=== PATIENT | female | born 1980 | race Caucasian/White ===

== ENCOUNTER → 2017-07-20 | Outpatient (CLI) | payer OTHER | LOC: FIMAGING 10:17 | PROVIDERS: ATTEND Obstetrics & Gynecology | DX: N92.1 Excessive and frequent menstruation with irregular cycle (principal) ==

== ENCOUNTER 2018-02-08 12:21 | Emergency (ER) | payer OTHER ==
[2018-02-08 13:03] LABS: PLATELET COUNT 225 10^3/uL (150-400)
[2018-02-08 13:30] LABS: INR 1.04 (0.83-1.16); PROTIME(PATIENT) 13.8 SEC (12.0-15.0)
[2018-02-08] MEDS ORDERED: APIXABAN 5 MG TAB PO ONE (13:45)
--- NOTE | 2018-02-08 13:45 | EDPHY ---
H & P Stated Complaint: Sent from urgent care for blood clot in upper arm area (?) Time Seen by Provider: 02/08/18 12:28 HPI/ROS: CHIEF COMPLAINT: DVT right arm HISTORY OF PRESENT ILLNESS: The patient presents to the ED after she was diagnosed with a DVT in her right arm at urgent care. The patient denies any history of fall or trauma. She does not smoke or use estrogens. There is no family history of DVT or PE. The patient denies any chest pain or difficulty breathing. The patient has no complaints of fever, cough or congestion. She denies any acute numbness or weakness. REVIEW OF SYSTEMS: A comprehensive 10 point review of systems is otherwise negative aside from elements mentioned in the history of present illness. Source: Patient Exam Limitations: No limitations - Personal History LMP (Females 10-55): Unknown Current Tetanus/Diphtheria Vaccine: No Current Tetanus Diphtheria and Acellular Pertussis (TDAP): No - Medical/Surgical History Hx Asthma: No Hx Chronic Respiratory Disease: No Hx Diabetes: No Hx Cardiac Disease: No Hx Renal Disease: No Hx Cirrhosis: No Hx Alcoholism: No Hx HIV/AIDS: No Hx Splenectomy or Spleen Trauma: No Other PMH: denies - Social History Smoking Status: Never smoked - Physical Exam Exam: General Appearance: Alert, no distress Eyes: Pupils equal and round no pallor or injection ENT, Mouth: Mucous membranes moist Respiratory: There are no retractions, lungs are clear to auscultation Cardiovascular: Regular rate and rhythm Gastrointestinal: Abdomen is soft and nontender, no masses, bowel sounds normal Neurological: A&O, normal motor function, normal sensory exam, normal cranial nerves Skin: Warm and dry, no rashes Musculoskeletal: Neck is supple nontender Extremities: Mild asymmetry noted in the right forearm, brisk 2+ radial and ulnar pulse noted, no compartment all tenderness Constitutional: Initial Vital Signs Temperature (C) 37.0 C 02/08/18 12:24 Heart Rate 55 L 02/08/18 12:24 Respiratory Rate 16 02/08/18 12:24 Blood Pressure 127/95 H 02/08/18 12:24 O2 Sat (%) 97 02/08/18 12:24 O2 Delivery Mode Room Air Allergies/Adverse Reactions: latex Allergy (Verified 02/08/18 12:23) Home Medications: Medication Instructions Recorded Apixaban [Eliquis] 5 tab PO AD #74 tab 02/08/18 Medical Decision Making - Diagnostics Imaging Results: Venous Duplex Doppler Study of Right Upper Extremity , 11:06 AM History: Acute swelling, M79.89 Technique: High frequency transducer was used for imaging and Doppler study of the veins of the right upper extremity. Spectral Doppler and color Doppler were utilized, along with various maneuvers to assess flow in the veins. Findings: There is no color doppler flow seen within the subclavian vein which is filled with thrombus. The basilic vein, cephalic vein, brachial vein and axillary vein are normally compressible and had normal waveforms within them. The internal jugular vein is normally compressible and has normal Doppler flow within it. No other venous thrombosis is identified. Impression: Acute subclavian vein thrombosis. ED Course/Re-evaluation: I reviewed the results of the patient's ultrasound with our interventional radiologist Dr. Ramos. Given the size of the clot noted in the subclavian vein she does not recommend thrombolysis in the absence of significant ischemia or swelling. I did consult with Dr. Laguna from vascular surgery. The patient will be started on Eliquis. She will contact his office to schedule a follow-up visit. She does understand to return to the ED immediately for markedly increasing pain, swelling, loss of pulse or sensation, painful movement or other concerns. A hypercoagulable panel was sent. The patient has no clinical evidence of a PE. The patient will be discharged home. She is given her 1st dose of Eliquis in the emergency department. Differential Diagnosis: Differential diagnosis considered includes limb ischemia, compartment syndrome, DVT, arterial insufficiency - Data Points Laboratory Results: Laboratory Results 02/08/18 12:50 02/08/18 12:50 02/08/18 02/08/18 02/08/18 13:05 12:50 12:50 WBC RBC Hgb Hct MCV MCH MCHC RDW Plt Count MPV Neut % (Auto) Lymph % (Auto) Dodge % (Auto) Eos % (Auto) Baso % (Auto) Nucleat RBC Rel Count Absolute Neuts (auto) Absolute Lymphs (auto) Absolute Monos (auto) Absolute Eos (auto) Absolute Basos (auto) Absolute Nucleated RBC Immature Gran % Immature Gran # PT INR APTT Fibrinogen D-Dimer Protein C Activity Pending Protein S Activity Pending Antithrombin III Activ Pending Factor V Leiden Mutat Pending Factor V Leiden Interp Pending Fact V Leiden Review By Pending Sodium 140 mEq/L mEq/L (135-145) Potassium 4.0 mEq/L mEq/L (3.5-5.2) Chloride 106 mEq/L mEq/L (97-110) Carbon Dioxide 23 mEq/l mEq/l (22-31) Anion Gap 11 mEq/L mEq/L (8-16) BUN 16 mg/dL mg/dL (7-23) Creatinine 0.6 mg/dL mg/dL (0.6-1.0) Estimated GFR > 60 Glucose 107 mg/dL H mg/dL (70-100) Calcium 9.4 mg/dL mg/dL (8.5-10.4) Beta HCG, Qual NEGATIVE Anti-Cardiolipin IgG Ab Pending Anti-Cardiolipin IgM Ab Pending 02/08/18 02/08/18 12:50 12:50 WBC 7.46 10^3/uL 10^3/uL (3.80-9.50) RBC 4.82 10^6/uL 10^6/uL (4.18-5.33) Hgb 15.1 g/dL g/dL (12.6-16.3) Hct 44.0 % % (38.0-47.0) MCV 91.3 fL fL (81.5-99.8) MCH 31.3 pg pg (27.9-34.1) MCHC 34.3 g/dL g/dL (32.4-36.7) RDW 12.5 % % (11.5-15.2) Plt Count 225 10^3/uL 10^3/uL (150-400) MPV 9.0 fL fL (8.7-11.7) Neut % (Auto) 62.1 % % (39.3-74.2) Lymph % (Auto) 29.4 % % (15.0-45.0) Dodge % (Auto) 6.7 % % (4.5-13.0) Eos % (Auto) 0.8 % % (0.6-7.6) Baso % (Auto) 0.5 % % (0.3-1.7) Nucleat RBC Rel Count 0.0 % % (0.0-0.2) Absolute Neuts (auto) 4.63 10^3/uL 10^3/uL (1.70-6.50) Absolute Lymphs (auto) 2.19 10^3/uL 10^3/uL (1.00-3.00) Absolute Monos (auto) 0.50 10^3/uL 10^3/uL (0.30-0.80) Absolute Eos (auto) 0.06 10^3/uL 10^3/uL (0.03-0.40) Absolute Basos (auto) 0.04 10^3/uL 10^3/uL (0.02-0.10) Absolute Nucleated RBC 0.00 10^3/uL 10^3/uL (0-0.01) Immature Gran % 0.5 % % (0.0-1.1) Immature Gran # 0.04 10^3/uL 10^3/uL (0.00-0.10) PT 13.8 SEC SEC (12.0-15.0) INR 1.04 (0.83-1.16) APTT 24.9 SEC SEC (23.0-38.0) Fibrinogen 257 mg/dL mg/dL (214-456) D-Dimer 0.47 ug/mLFEU ug/mLFEU (0.00-0.50) Protein C Activity Protein S Activity Antithrombin III Activ Factor V Leiden Mutat Factor V Leiden Interp Fact V Leiden Review By Sodium Potassium Chloride Carbon Dioxide Anion Gap BUN Creatinine Estimated GFR Glucose Calcium Beta HCG, Qual Anti-Cardiolipin IgG Ab Anti-Cardiolipin IgM Ab Medications Given: Discontinued Medications Apixaban (Eliquis) 10 mg PO EDNOW ONE Stop: 02/08/18 13:46 Last Admin: 02/08/18 14:16 Dose: 10 mg Departure - Departure Disposition: Home, Routine, Self-Care Clinical Impression: Deep vein thrombosis (DVT) of right upper extremity Condition: Good Instructions: Deep Vein Thrombosis (ED) Additional Instructions: 1. Please begin Eliquis as prescribed. 2. Please contact our vascular surgeon Dr. Laguna to schedule a follow-up visit next week. 3. Please return to the ED immediately for any markedly increased pain, swelling , coolness of your right arm, loss of sensation or other concerns. Referrals: Jennifer Rahman MD [Primary Care Provider] - As per Instructions Prescriptions: Apixaban [Eliquis] 5 tab PO AD #74 tab
[2018-02-08 14:22] VITALS: BP 121/65
== END 2018-02-08 14:21 | disposition home or self-care (01) ==
DX: I82.621 Acute embolism and thrombosis of deep veins of right upper extremity (principal); Z79.01 Long term (current) use of anticoagulants; Z91.040 Latex allergy status
CPT/HCPCS: 85300-90; 85303-90; 85306-90; 86147-90

== ENCOUNTER → 2018-02-08 | Outpatient (CLI) | payer OTHER | LOC: BMCIMAGING 09:47 | PROVIDERS: ATTEND Family Medicine | DX: I82.B11 Acute embolism and thrombosis of right subclavian vein (principal) ==

== ENCOUNTER → 2018-02-20 | Day surgery (SDC) | payer OTHER ==
[~2018-02-20] MED LIST: ALTEPLASE 2 MG VIAL IVP PRN; FLUMAZENIL 0.5 MG/5 ML MDV IVP ONE; FLUMAZENIL 0.5 MG/5 ML MDV IVP PRN; GLUCAGON HCL 1 MG VIAL IVP PRN; HEPARIN 10,000 UNIT/10 ML MDV (1,000 UNIT/ML) IVP PRN; IOPAMIDOL (ISOVUE-300) 100 ML BTL ONE; LIDOCAINE 1% 300 MG/30 ML SDV ONE; MEPERIDINE 25 MG/ML SYR IVP PRN; MIDAZOLAM 2 MG/2 ML VIAL IVP PRN; MIDAZOLAM 2 MG/2 ML VIAL ONE; NALOXONE HCL 0.4 MG/ML INJ IVP PRN; NALOXONE HCL 0.4 MG/ML INJ ONE; NS 1,000 ML IV SCH; ONDANSETRON 4 MG/2 ML VIAL IVP ONE; ONDANSETRON 4 MG/2 ML VIAL ONE; PROTAMINE SULFATE 50 MG/5 ML VIAL IVP PRN; fentaNYL 100 MCG/2 ML INJ IVP PRN; fentaNYL 100 MCG/2 ML INJ ONE
[2018-02-20 09:53] VITALS: BP 117/75; PULSE 60; RESP 16; TEMP 98.7; O2SAT 95
--- NOTE | 2018-02-20 12:00 | PDGENHP ---
History & Physical Chief Complaint: RUE SUBCLAVIAN CLOT History of Present Illness: PATIENT WAS DIAGNOS[facility] WITH [facility] CLOT [facility]. [facility]. SWELLING NOW MUCH BETTER, WITH IMPROVED PAIN. Pertinent Past, Social, Family History: OTHERWISE HEALTHY Relevant Physical Exam: NO DISCERNABLE ARM SWELLING. Cardiorespiratory Assessment: RRR, CTA.
== END | disposition home or self-care (01) ==
LOC: FIMAGING 09:00
PROVIDERS: ATTEND Surgery
PROC: B516ZZZ Fluoroscopy of Right Subclavian Vein (ICD-10-PCS; principal; 2018-02-20)
DX: I82.B11 Acute embolism and thrombosis of right subclavian vein (principal); G54.0 Brachial plexus disorders; Z79.01 Long term (current) use of anticoagulants
CPT/HCPCS: 36005; 75820; C1769; J1644; J2250; J2310; J2405; J3010; Q9967

== ENCOUNTER 2018-03-05 06:14 | Inpatient (IN) | payer OTHER ==
[2018-03-05] MEDS ORDERED: ceFAZolin 2 GM/SWFI 2 GM/20 ML SYR IVP ONE (06:27)
[2018-03-05] MEDS ORDERED: LR 1,000 ML IV ONE (06:29)
[2018-03-05] MEDS ORDERED: LIDOCAINE 1% 2 ML INJ ID PRN (06:29)
[2018-03-05] MEDS ORDERED: LIDOCAINE 1% 2 ML INJ ONE (06:36)
[2018-03-05] MEDS ORDERED: BUPIVACAINE 0.5% 30 ML SDV ONE (07:37)
[2018-03-05] MEDS ORDERED: THROMBIN (BOVINE) 5,000 UNIT VIAL TP ONE (07:37)
--- NOTE | 2018-03-05 07:41 | PDHPUP ---
History & Physical Update H&P update statement: This history and physical update is based on an assessment of the patient which was completed after admission or registration (within 24 hours), but prior to the surgery/procedure. H&P update: H&P reviewed & patient examined, no change in patient's condition since H&P completed
[2018-03-05] MEDS ORDERED: MIDAZOLAM 2 MG/2 ML VIAL IVP ONE (07:46)
--- NOTE | 2018-03-05 07:52 | PDANEPAE ---
ANE History of Present Illness Right first rib resection ANE Past Medical History - Cardiovascular History Hx Hypertension: No Hx Arrhythmias: No Hx Chest Pain: No Hx Coronary Artery / Peripheral Vascular Disease: No Hx CHF / Valvular Disease: No Hx Palpitations: No - Pulmonary History Hx COPD: No Hx Asthma/Reactive Airway Disease: Yes Hx Recent Upper Respiratory Infection: No Hx Oxygen in Use at Home: No Hx Sleep Apnea: No Sleep Apnea Screening Result - Last Documented: Negative Pulmonary History Comment: exercise and allergy induced asthma uses inhaler - Neurologic History Hx Cerebrovascular Accident: No Hx Seizures: No Hx Dementia: No - Endocrine History Hx Diabetes: No Hypothyroid: No Hyperthyroid: No Obesity: no - Renal History Hx Renal Disorders: No - Liver History Hx Hepatic Disorders: No - Neurological & Psychiatric Hx Hx Neurological and Psychiatric Disorders: No - Cancer History Hx Cancer: No - Congenital Disorder History Hx Congenital Disorders: No - GI History GERD: no Hx Gastrointestinal Disorders: No - Other Health History Other Health History: STOMACH SURG. uses epi-pen. bruising easily - Chronic Pain History Chronic Pain: No - Surgical History Prior Surgeries: RT ARM DVT ANE Review of Systems Review of Systems: - Exercise capacity METS (RN): 6 METS ANE Patient History - Allergies Allergies/Adverse Reactions: adhesive tape Allergy (Mild, Verified 03/01/18 11:53) Other-Enter Comments latex Allergy (Mild, Verified 03/01/18 11:53) Other-Enter Comments - Home Medications Home Medications: Apixaban [Eliquis] 5 tab PO BID 02/27/18 [Last Taken 03/03/18 20:30] - NPO status NPO Since - Liquids (Date): 03/04/18 NPO Since - Liquids (Time): 21:30 NPO Since - Solids (Date): 03/04/18 NPO Since - Solids (Time): 21:30 - Anes Hx Anes Hx: post operative nausea - Smoking Hx Smoking Status: Never smoked - Alcohol Use Alcohol Use: Occasionally - Family Anes Hx Family Hx Anesthesia Complications: none ANE Labs/Vital Signs - Vital Signs Blood Pressure: 115/76 Heart Rate: 65 Respiratory Rate: 16 O2 Sat (%): 94 Height: 167.64 cm Weight: 63.503 kg ANE Physical Exam - Airway Neck exam: FROM Mallampati Score: Class 1 Mouth exam: normal dental/mouth exam - Pulmonary Pulmonary: no respiratory distress - Cardiovascular Cardiovascular: regular rate and rhythym, bradycardia - ASA Status ASA Status: I ANE Anesthesia Plan Anesthesia Plan: general endotracheal anesthesia
[2018-03-05] MEDS ORDERED: fentaNYL 250 MCG/5 ML INJ ONE (08:01)
[2018-03-05] MEDS ORDERED: PROPOFOL/EMULSION 500 MG/50 ML BOTTLE IV ONE ×3 (08:01→09:40)
[2018-03-05] MEDS ORDERED: ROCURONIUM 50 MG/5 ML VIAL ONE (08:02)
[2018-03-05] MEDS ORDERED: DEXAMETHASONE 4 MG/ML VIAL ONE ×2 (08:38)
[2018-03-05] MEDS ORDERED: GLYCOPYRROLATE 0.2 MG/1 ML VIAL ONE (08:38)
[2018-03-05] MEDS ORDERED: ONDANSETRON 4 MG/2 ML VIAL ONE (08:39)
[2018-03-05] MEDS ORDERED: fentaNYL 100 MCG/2 ML INJ ONE ×2 (09:40→10:59)
[2018-03-05] MEDS ORDERED: HYDROmorphONE/DILAUDID 2 MG/ML INJ ONE (09:44)
[2018-03-05] MEDS ORDERED: THROMBIN (BOVINE) 20,000 UNIT VIAL TP ONE (09:52)
[2018-03-05] MEDS ORDERED: THROMBIN (BOVINE) 20,000 UNIT SPRAY TP ONE (09:52)
[2018-03-05] MEDS ORDERED: HYDROCODONE/APAP 5/325 TAB PO PRN (10:06)
[2018-03-05] MEDS ORDERED: METOCLOPRAMIDE 10 MG/2 ML VIAL IVP PRN (10:06)
[2018-03-05] MEDS ORDERED: DIAZEPAM 5 MG/ML 1 ML SYR IVP PRN (10:06)
[2018-03-05] MEDS ORDERED: ONDANSETRON 4 MG/2 ML VIAL IVP PRN ×2 (10:06→10:23)
[2018-03-05] MEDS ORDERED: oxyCODONE IR 5 MG TAB PO PRN (10:06)
[2018-03-05] MEDS ORDERED: PROMETHAZINE HCL 25 MG/ML INJ IVP PRN (10:06)
[2018-03-05] MEDS ORDERED: NALOXONE HCL 0.4 MG/ML INJ IVP PRN (10:06)
--- NOTE | 2018-03-05 10:26 | POSTOPPROG ---
Post Op Note Date of Operation: 03/05/18 Surgeon: John Laguna Business Development Coordinator: Tesha Meng Anesthesiologist: Asya Randall Anesthesia: GET(General Endotracheal) Pre-op Diagnosis: TOS, R subclavian DVT Post-op Diagnosis: same Procedure: transaxillary R 1st rib resection; subclavian and anterior scalene release Findings: nerve artery and vein preserved. pleural space entered Inf/Abcess present in the surg proc area at time of surgery?: No EBL: Minimal Complications: none Specimen(s): 1rib to pathology
[2018-03-05] MEDS: fentaNYL 100 MCG/2 ML INJ IVP PRN ×3 (11:04→11:37)
[2018-03-05] MEDS: HYDROmorphone HCL/NS 0.5 MG/ML SYR IVP PRN ×4 (12:56→21:23)
[2018-03-05] MEDS: KETOROLAC 15 MG/1 ML SDV IVP SCH ×2 (15:00→20:12)
[2018-03-05] MEDS: OXYCODONE/APAP 5/325 TAB PO PRN (18:33)
[2018-03-05] MEDS: DOCUSATE SODIUM 100 MG CAP PO SCH (20:15)
[2018-03-05] MEDS: LORazepam 2 MG/ML INJ IVP PRN (22:10)
[2018-03-06] MEDS: KETOROLAC 15 MG/1 ML SDV IVP SCH ×5 (00:07→23:42)
[2018-03-06] MEDS: HYDROmorphone HCL/NS 0.5 MG/ML SYR IVP PRN ×5 (00:08→13:16)
[2018-03-06] MEDS: OXYCODONE/APAP 5/325 TAB PO PRN ×2 (08:04→14:37)
[2018-03-06] MEDS: DOCUSATE SODIUM 100 MG CAP PO SCH ×2 (08:05→22:08)
[2018-03-06] MEDS ORDERED: APIXABAN 5 MG TAB PO SCH (09:00)
--- NOTE | 2018-03-06 09:24 | POSTANESTH ---
Post Anesthetic Evaluation Cardiovascular Status: Normal, Stable Respiratory Status: Tx Decrease in SpO2 Level of Consciousness/Mental Status: Can Participate in Eval Pain Control: Adequate, Prn Tx Ordered Nausea/Vomiting Control: Adequate, Prn Tx Ordered (Pt having chest tube placed.) Complications Possibly Related to Anesthesia: None Noted
[2018-03-06] MEDS ORDERED: fentaNYL 100 MCG/2 ML INJ ONE (09:42)
[2018-03-06] MEDS ORDERED: MIDAZOLAM 2 MG/2 ML VIAL ONE (09:42)
[2018-03-06] MEDS ORDERED: LIDO/EPI 1% **for epidural** 30 ML SDV ONE (09:47)
--- NOTE | 2018-03-06 09:53 | PDPROPOC ---
Sedation Plan of Care Sedation Plan of Care: vital signs stable ASA Classification: ASA 2 Planned drugs: midazolam Mallampati Score: Class 1 Mallampati Reference Image: Patient passed 3-3-2 rule?: Yes
--- NOTE | 2018-03-06 10:25 | SOAPPROG ---
SOAP Progress Note Assessment/Plan: Assessment/Plan: 37 Y F c R TOS c DVT, has been on Eliquis, s/p transaxillary R 1st rib resection, POD#1. Hemothorax, small pneumothorax. Chest tube placed by Dr. Laguna. Has had good oxygen saturations on 2L nc. +large thin dark sanguinous output. CXR now. CT to [facility]. Follow H&H. Hold Eliquis. Pain. Controlled. Regular diet. Dispo: pending. S: c/o right chest wall pain. hard to take a full breath. (this before chest tube placed) O: gen: alert nad heent: ncat chest: dull BS R; better fremitus post CT cor: rrr abd: soft, nt inc: cdi, min/mod diffuse swelling 03/06/18 10:20 Objective: Vital Signs Temp Pulse Resp BP Pulse Ox 36.9 C 72 14 108/70 95 03/06/18 08:36 03/06/18 08:36 03/06/18 08:36 03/06/18 08:36 03/06/18 08:36 Laboratory Results 03/06/18 07:10 03/06/18 07:10 03/05/18 03/06/18 03/07/18 05:59 05:59 05:59 Intake Total 1610 200 Output Total 1125 400 Balance 485 -200 ICD10 Worksheet Patient Problems: Problems Problem Status Onset DVT (deep venous thrombosis) Acute Thoracic outlet syndrome Acute - ICD10 Problem Qualifiers (1) Thoracic outlet syndrome (2) DVT (deep venous thrombosis) Qualifiers: DVT location: upper extremity Laterality: right
[2018-03-06] MEDS ORDERED: HYDROmorphONE/DILAUDID 2 MG/ML INJ ONE (10:58)
[2018-03-06] MEDS ORDERED: HYDROmorphONE/DILAUDID 2 MG/ML INJ IVP PRN (11:14)
[2018-03-06] MEDS: LORazepam 2 MG/ML INJ IVP PRN (14:49)
[2018-03-06] MEDS ORDERED: NALOXONE HCL 0.4 MG/ML INJ IVP PRN (15:50)
[2018-03-06] MEDS: HYDROmorphONE/DILAUDID 6 MG/30 ML PCA IV PRN (16:28)
--- NOTE | 2018-03-06 16:42 | PDMN ---
Medical Necessity Medical necessity: [id number] pneumothorax: A-2 days: pneumothorax post op req Chest tube placement. further monitoring and tx needed > 2 midnights.
--- NOTE | 2018-03-06 16:50 | ASMTCMCOM ---
CM Note CM Note Notes: Chart reviewed, no needs identified. Anticipate pt will dc home w/support of when medically stable. CM available for any changes. DC Plan: Independent Date Signed: 03/06/2018 04:50 PM Electronically Signed By:Jessy Renteria RN
--- NOTE | 2018-03-06 17:17 | CPEKG ---
Heart Rate: 83 RR Interval: 723 P-R Interval: 176 QRSD Interval: 82 QT Interval: 420 QTC Interval: 494 P Melvin: 15 QRS Melvin: 7 T Wave Melvin: -49 EKG Severity - ABNORMAL ECG - EKG Impression: SINUS RHYTHM EKG Impression: LVH BY VOLTAGE EKG Impression: POSSIBLE LEFT ATRIAL ABNORMALITY EKG Impression: NONSPECIFIC T ABNORMALITIES, DIFFUSE LEADS, CONSIDER INFEROLATERAL ISCHEMIA EKG Impression: BORDERLINE PROLONGED QT INTERVAL Electronically Signed By: Brijesh Frias 07-Mar-2018 06:53:24
[2018-03-06] MEDS ORDERED: LORazepam 2 MG/ML INJ IVP ONE (17:27)
--- NOTE | 2018-03-06 18:04 | SOAPPROG ---
SOAP Progress Note Assessment/Plan: Assessment/Plan: 37 Y F c R TOS c DVT, has been on Eliquis, s/p transaxillary R 1st rib resection, POD#1. s/p tube thoracostomy for pneumo/hemothorax. Stat team called. Patient c/o chest pain and difficulty breathing. O2 needs at 15 L with nonrebreather when I arrived. BP stable and not tachycardic. Chest xray actually improved from earlier today. EKG without signs of ischemia. First troponin negative. H&H actually improved. Suspect pain and irritation from chest tube combined with anxiety. Could have some bloody oozing but doubt large volume bleeding. Doubt PE. Doubt cardiac issue. Chest tube in good position. Dr. Laguna aware. O2 sats kept >90% on 3 L nc upon me leaving the stat call. Patient calmed with ativan. Transfer to SDU. Afebrile. Decreased BS R base but clear at apex. Chest tube tidaling. No air leak. Cor: rrr. wounds well dressed. no saturation (did require dressing change earlier for drainage around chest tube). axillary inc cdi. minimal swelling. mild crepitus. 03/06/18 17:59 Objective: Vital Signs Temp Pulse Resp BP Pulse Ox 36.7 C 68 18 91/58 L 93 03/06/18 14:52 03/06/18 14:52 03/06/18 14:52 03/06/18 14:52 03/06/18 14:52 Laboratory Results 03/06/18 17:15 03/06/18 07:10 03/05/18 03/06/18 03/07/18 05:59 05:59 05:59 Intake Total 1610 460 Output Total 1125 1300 Balance 485 -840 ICD10 Worksheet Patient Problems: Problems Problem Status Onset DVT (deep venous thrombosis) Acute Thoracic outlet syndrome Acute - ICD10 Problem Qualifiers (1) Thoracic outlet syndrome (2) DVT (deep venous thrombosis) Qualifiers: DVT location: upper extremity Laterality: right
[2018-03-06] MEDS ORDERED: FAMOTIDINE 20 MG/NACL 50 ML IV SCH (21:00)
[2018-03-06] MEDS ORDERED: NS W/ 20 KCl/L 1,000 ML IV SCH (21:45)
[2018-03-07] MEDS: KETOROLAC 15 MG/1 ML SDV IVP SCH ×3 (06:00→17:58)
[2018-03-07] MEDS: FAMOTIDINE 20 MG TAB PO SCH ×2 (09:47→20:54)
[2018-03-07] MEDS: DOCUSATE SODIUM 100 MG CAP PO SCH ×2 (09:47→20:54)
[2018-03-07] MEDS: LORazepam 1 MG TAB PO PRN (10:45)
[2018-03-07] MEDS: OXYCODONE/APAP 5/325 TAB PO PRN ×3 (10:45→20:54)
--- NOTE | 2018-03-07 12:25 | GCON ---
[f rep st] CONSULTATION PULMONARY CONSULTATION DATE OF CONSULTATION: 03/07/2018 HISTORY OF PRESENT ILLNESS: This patient is a 37-year-old female who developed a subclavian vein thr ombosis and was found to have thoracic outlet syndrome and underwent a 1st rib resection with scalene muscle relaxation on the . She did fairly well postoperatively but developed a hemopneumothorax on the and required chest tube placement. Later the same day, she was having difficulty with p ain control and movement and had a drop in her oxygen saturation. Her chest x-ray did not change faith y much, but her pain control was difficult, so she was moved to the ICU. On arrival though, her oxyg en requirements dropped substantially. A chest x-ray did show a small right apical pneumothorax, and she did have about 1 L of blood out of her chest tube overnight. Otherwise, her pain control is muc h better now and is feeling much more stable. REVIEW OF SYSTEMS: Otherwise negative. PAST MEDICAL HISTORY: Unremarkable. PAST SURGICAL HISTORY: No previous surgeries. SOCIAL HISTORY: She is a nonsmoker. No alcohol or IV drug use. FAMILY HISTORY: Noncontributory at this time. CURRENT MEDICATIONS: Include Colace, Pepcid, Dilaudid, Toradol, Ativan, Narcan, Zofran, Percocet, an d normal saline. PHYSICAL EXAMINATION: VITAL SIGNS: She had a blood pressure of 99/54, heart rate 78, respirations 1 8, oxygen saturation 93% on 1.5 L nasal cannula. GENERAL: She was awake, alert, in no apparent dist ress. Able to speak in full sentences without using accessory muscles for breathing. HEENT: Pupils equally round and reactive to light, nonicteric and noninjected. Mucous membranes are moist without erythema or exudate. NECK: Supple, without adenopathy or jugular vein distention. LUNGS: Breath sounds were diminished but clear to auscultation bilaterally without wheezing. HEART: Regular rate and rhythm without murmurs, rubs, gallops. ABDOMEN: Soft, nontender, nondistended without hepatospl enomegaly. EXTREMITIES: Show no clubbing, cyanosis, or edema. NEUROLOGIC: Nonfocal, including machine crater nial nerves and deep tendon reflexes. OBJECTIVE DATA: Includes a chest tube, which is filled with blood, but no air leak and is currently on suction. Chest x-ray shows a right apical pneumothorax that is apparently new from yesterday. He r hematocrit is 26 and troponin was negative. ASSESSMENT/PLAN: 1. Pain control after chest tube placed for hemopneumothorax. She seems to be doing much better at this point. We are working on transitioning her to more oral pain medications. Should she require i ncreasing doses, I think higher doses of Toradol would certainly be tolerated, particularly in this a ge group, and we will continue to observe her in the ICU. 2. Pneumothorax. She is on suction right now, and we will do daily chest x-rays, expecting that to recover. /[id number]/MODL
--- NOTE | 2018-03-07 13:53 | SOAPPROG ---
SOAP Progress Note Assessment/Plan: Assessment: 37 y/o F with DVT in right subclavian, now s/p 1st rib resection 03/05 s/p stat team called for increasing chest pain and dropping O2 sats S: Doing better today. Pain was well controlled until RN changed chest tube dressing. O: Alert Afebrile VSS. Hct down from 31 yesterday to 25.7 this am RRR No increased WOB, chest sounds equal bilaterally, chest tube canister with 1000ml drainage since placement yesterday, but very little drainage today. No air leak. Plan: Unclear etiology of bleeding in chest. Repeat chest xray. If ok, consider pulling chest tube tomorrow. Pt seen with Dr. Laguna. 03/07/18 13:45 Objective: Vital Signs Temp Pulse Resp BP Pulse Ox 37.4 C 78 18 99/54 L 93 03/07/18 11:49 03/07/18 11:49 03/07/18 11:49 03/07/18 11:49 03/07/18 11:49 Laboratory Results 03/07/18 06:10 03/06/18 07:10 03/06/18 03/07/18 03/08/18 05:59 05:59 05:59 Intake Total 1610 1756.5 Output Total 1125 1460 Balance 485 296.5 ICD10 Worksheet Patient Problems: Problems Problem Status Onset DVT (deep venous thrombosis) Acute Thoracic outlet syndrome Acute
[2018-03-08] MEDS: KETOROLAC 15 MG/1 ML SDV IVP SCH ×4 (00:22→11:35)
[2018-03-08] MEDS: OXYCODONE/APAP 5/325 TAB PO PRN ×3 (01:35→09:37)
[2018-03-08 06:13] LABS: PLATELET COUNT 168 10^3/uL (150-400)
[2018-03-08] MEDS: DOCUSATE SODIUM 100 MG CAP PO SCH ×2 (09:37→21:53)
[2018-03-08] MEDS: FAMOTIDINE 20 MG TAB PO SCH ×2 (09:38→21:53)
[2018-03-08] MEDS: HYDROmorphONE/DILAUDID 6 MG/30 ML PCA IV PRN (09:45)
[2018-03-08] MEDS: KETOROLAC 30 MG/1 ML SDV IVP SCH ×2 (12:42→19:26)
--- NOTE | 2018-03-08 14:00 | PDINTPN ---
[employer] Progress Note Assessment/Plan: Assessment/plan: 37 F with SC vein thrombosis and TOS, s/p first rib resection with anterior scalene release complicated by postop hemo/pneumothorax and episode of intractable pain and O2 requirement which resolved on transfer to ICU. * TOS- clinically stable, though pain control remains an issue. Increased Toradol to 30 mg today * PTX- slowly resolving PTX with 160ml output last 24 hrs. Further management per Dr. Laguna * OK for floor Subjective: felt better until up to BR and c/o increased right CP Objective: Vital Signs Temp Pulse Resp BP Pulse Ox 37.0 C 67 18 101/60 96 03/08/18 11:18 03/08/18 11:18 03/08/18 11:18 03/08/18 11:18 03/08/18 11:18 Laboratory Results 03/08/18 05:50 03/06/18 07:10 03/07/18 03/08/18 03/09/18 05:59 05:59 05:59 Intake Total 1756.5 1426 Output Total 1460 160 Balance 296.5 1266 Physical Exam - Physical Exam General Appearance: alert, mild distress EENT: PERRL/EOMI Neck: supple Respiratory: lungs clear, normal breath sounds, No respiratory distress, No accessory muscle use Cardiac/Chest: regular rate, rhythm, No edema Abdomen: non-tender, soft, No distended Skin: normal color, warm/dry, No cyanosis Lymphatic: no adenopathy Extremities: No pedal edema Neuro/Psych: alert, normal mood/affect, oriented x 3 ICD10 Worksheet Patient Problems: Problems Problem Status Onset DVT (deep venous thrombosis) Acute Thoracic outlet syndrome Acute
[2018-03-08] MEDS: oxyCODONE IR 5 MG TAB PO PRN ×2 (14:21→19:24)
[2018-03-08] MEDS: LORazepam 2 MG/ML INJ IVP PRN (17:24)
--- NOTE | 2018-03-08 17:27 | SOAPPROG ---
SOAP Progress Note Assessment/Plan: Assessment: 37 y/o F with DVT in right subclavian, now s/p 1st rib resection 03/05 s/p stat team called for increasing chest pain and dropping O2 sats S: Doing better today. Pain was well controlled until RN changed chest tube dressing. O: Alert Afebrile VSS. Hct down from 31 yesterday to 25.7 this am RRR No increased WOB, chest sounds equal bilaterally, chest tube canister with 1000ml drainage since placement yesterday, but very little drainage today. No air leak. Plan: Unclear etiology of bleeding in chest. Repeat chest xray. If ok, consider pulling chest tube tomorrow. Pt seen with Dr. Laguna. 03/07/18 13:45 Much improved. Pain controlled with toradol and oxycodone. Downgrade to med/ surg. Restart eliquis tomorrow morning. Chest tube with 160ml drainage and no air leak. Chest xray shows improving pneumo. 03/08/18 17:26 Objective: Vital Signs Temp Pulse Resp BP Pulse Ox 37.0 C 67 18 101/60 96 03/08/18 11:18 03/08/18 11:18 03/08/18 11:18 03/08/18 11:18 03/08/18 11:18 Laboratory Results 03/08/18 05:50 03/06/18 07:10 03/07/18 03/08/18 03/09/18 05:59 05:59 05:59 Intake Total 1756.5 1426 Output Total 1460 160 Balance 296.5 1266 ICD10 Worksheet Patient Problems: Problems Problem Status Onset DVT (deep venous thrombosis) Acute Thoracic outlet syndrome Acute
[2018-03-08] MEDS: APIXABAN 2.5 MG TAB PO SCH (21:54)
[2018-03-09] MEDS: oxyCODONE IR 5 MG TAB PO PRN ×6 (00:56→22:03)
[2018-03-09] MEDS: KETOROLAC 30 MG/1 ML SDV IVP SCH ×5 (00:58→23:58)
[2018-03-09 05:01] LABS: PLATELET COUNT 190 10^3/uL (150-400)
[2018-03-09] MEDS: FAMOTIDINE 20 MG TAB PO SCH ×2 (08:27→20:45)
[2018-03-09] MEDS: APIXABAN 2.5 MG TAB PO SCH ×2 (08:27→20:51)
[2018-03-09] MEDS: DOCUSATE SODIUM 100 MG CAP PO SCH ×2 (08:27→20:45)
[2018-03-09] MEDS ORDERED: APIXABAN 5 MG TAB PO SCH (09:00)
--- NOTE | 2018-03-09 11:01 | SOAPPROG ---
SOAP Progress Note Assessment/Plan: Assessment: 37 y/o F with DVT in right subclavian, now s/p 1st rib resection 03/05 s/p stat team called for increasing chest pain and dropping O2 sats 03/06 S: Continuing to improve. Started Eliquis last night. Some anxiety with starting eliquis and bleeding. Pain improving. O: Alert Afebrile VSS. Hct stable RRR No increased WOB, chest sounds equal bilaterally, chest tube canister with 125ml out in last [address] leak[address] to suction. Plan: Seen with Dr. Tinoco. Chest xray this am shows improving hemothorax and stable pneumo. Will be conservative given her unusual postoperative course. Chest tube to water seal. Repeat chest xray tomorrow and possible removal of chest tube. 03/09/18 10:57 Objective: Vital Signs Temp Pulse Resp BP Pulse Ox 37.3 C 64 14 98/63 L 95 03/09/18 07:38 03/09/18 07:38 03/09/18 00:00 03/09/18 07:38 03/09/18 07:38 Laboratory Results 03/09/18 04:49 03/06/18 07:10 03/08/18 03/09/18 03/10/18 05:59 05:59 05:59 Intake Total 1426 708 Output Total 160 125 Balance 1266 583 ICD10 Worksheet Patient Problems: Problems Problem Status Onset DVT (deep venous thrombosis) Acute Thoracic outlet syndrome Acute
[2018-03-09] MEDS: LORazepam 1 MG TAB PO PRN (15:26)
[2018-03-10] MEDS: oxyCODONE IR 5 MG TAB PO PRN ×5 (02:42→21:51)
[2018-03-10] MEDS: KETOROLAC 30 MG/1 ML SDV IVP SCH (05:28)
[2018-03-10] MEDS: FAMOTIDINE 20 MG TAB PO SCH ×2 (07:29→21:27)
[2018-03-10] MEDS: DOCUSATE SODIUM 100 MG CAP PO SCH ×2 (07:30→21:27)
[2018-03-10] MEDS ORDERED: POLYETHYLENE GLYCOL 3350 17 GM PKT PO PRN (09:03)
[2018-03-10] MEDS ORDERED: MAGNESIUM HYDROXIDE 30 ML UDCUP PO PRN (09:03)
[2018-03-10] MEDS ORDERED: BISACODYL 10 MG SUPP PR PRN (09:03)
--- NOTE | 2018-03-10 09:06 | SOAPPROG ---
SOAP Progress Note Assessment/Plan: Assessment: 37 y/o F with DVT in right subclavian, now s/p 1st rib resection 03/05 s/p stat team called for increasing chest pain and dropping O2 sats 03/06 S: Continuing to improve. Started Eliquis last night. Some anxiety with starting eliquis and bleeding. Pain improving. O: Alert Afebrile VSS. Hct stable RRR No increased WOB, chest sounds equal bilaterally, chest tube canister with 125ml out in last [address] leak[address] to suction. Plan: Seen with Dr. Tinoco. Chest xray this am shows improving hemothorax and stable pneumo. Will be conservative given her unusual postoperative course. Chest tube to water seal. Repeat chest xray tomorrow and possible removal of chest tube. 03/09/18 10:57 03/10/18 09:04 Continuing to improve. Chest tube to water seal with no air leak. Chest xray from this am still pending. Pending xray, possibly pull chest tube today. Pain well controlled. Eager to be discharged. Objective: Vital Signs Temp Pulse Resp BP Pulse Ox 36.8 C 67 12 106/79 92 03/10/18 08:01 03/10/18 08:01 03/10/18 08:01 03/10/18 08:01 03/10/18 08:01 Laboratory Results 03/09/18 04:49 03/06/18 07:10 03/09/18 03/10/18 03/11/18 05:59 05:59 05:59 Intake Total 708 Output Total 125 40 Balance 583 -40 ICD10 Worksheet Patient Problems: Problems Problem Status Onset DVT (deep venous thrombosis) Acute Thoracic outlet syndrome Acute
--- NOTE | 2018-03-10 09:28 | GOP ---
[f rep st] OPERATIVE REPORT DATE OF OPERATION: 03/05/2018 SURGEON: John Laguna MD AUTOMOTIVE DESIGNER: Tesha Meng, PAC. ANESTHESIOLOGIST: Asya Randall MD. PREOPERATIVE DIAGNOSIS: Right subclavian vein thrombosis and thoracic outlet syndrome. POSTOPERATIVE DIAGNOSIS: Right subclavian vein thrombosis and thoracic outlet syndrome. PROCEDURE PERFORMED: Right first rib resection. FINDINGS: The patient was found to have a normal anatomy. ESTIMATED BLOOD LOSS: Less than 50 cc. DESCRIPTION OF PROCEDURE: The patient taken to the operating room where she received satisfactory ge neral endotracheal anesthesia by Dr. Randall, placed in the left lateral decubitus position at approxi mately a 45 degree angle. The right arm was prepped free and suspended on the Omni retractor. Incis ion was made at the base of the axilla. Dissection was extended down to the chest wall and then up a long the chest wall to the 1st rib. The intercostal cutaneous nerve was identified and spared. The arm was elevated and dissection extended around the 1st rib. The base of the rib was exposed with el ectrocautery and freed up with a [place] elevator. There was a small rent in the pleura. The upper ed ge of the rib was identified. The anterior scalene muscle was hooked with the right angle and divide d with electrocautery, freeing the 1st rib entirely. The rib was then divided anteriorly and deliver ed back. It was then divided posteriorly with elevation of the brachial plexus cord and the rib was removed. Both cut ends were shortened further with a box annealer and rongeurs and then smoothed off w ith a rasp. Bone wax was placed over the cut ends of the bone and cartilage anteriorly, and scar tis bruce around the subclavian vein was freed up and removed. The subclavius tendon had been divided to d ecrease the pressure on the vein. Hemostasis was carefully obtained. Some topical thrombin was plac ed in the wound. A small chest tube was placed in the pleural space and the wound was then closed wi th a running 3-0 Vicryl suture for the subcutaneous tissue. The patient was Valsalva as the wound wa s closed. The chest tube was removed. Hemostasis was further obtained. The wound was infiltrated w ith 0.5% Marcaine. The skin was closed with 4-0 Monocryl subcuticular suture. She tolerated the pro cedure quite well. COMPLICATIONS: There were no complications. /[id number]/MODL
[2018-03-10] MEDS: APIXABAN 2.5 MG TAB PO SCH ×2 (10:06→21:27)
[2018-03-10] MEDS: IBUPROFEN 600 MG TAB PO PRN ×2 (13:28→21:27)
--- NOTE | 2018-03-10 15:26 | ASMTCMCOM ---
CM Note CM Note Notes: Per RN, patient likely to have chest tube removed tomorrow and discharged home independently with and family support. No therapies ordered. CM available to support for CM discharge needs. Current D/C Plan: TBD, likely independent with family. Date Signed: 03/10/2018 03:25 PM Electronically Signed By:Ayesha Roger
--- NOTE | 2018-03-10 19:23 | SOAPPROG ---
SOAP Progress Note Assessment/Plan: Assessment: cxr with small pneumo. Will keep chest tube in another day. Work on cough IS. Added Ibuprofen Plan: 03/10/18 19:22 Objective: Vital Signs Temp Pulse Resp BP Pulse Ox 37.1 C 72 14 115/77 92 03/10/18 15:51 03/10/18 15:51 03/10/18 15:51 03/10/18 15:51 03/10/18 15:51 Laboratory Results 03/09/18 04:49 03/06/18 07:10 03/09/18 03/10/18 03/11/18 05:59 05:59 05:59 Intake Total 708 100 Output Total 125 40 Balance 583 -40 100 ICD10 Worksheet Patient Problems: Problems Problem Status Onset DVT (deep venous thrombosis) Acute Thoracic outlet syndrome Acute
[2018-03-11] MEDS: oxyCODONE IR 5 MG TAB PO PRN ×3 (01:54→10:26)
[2018-03-11] MEDS: IBUPROFEN 600 MG TAB PO PRN ×2 (03:24→14:44)
[2018-03-11 08:47] VITALS: BP 115/73
[2018-03-11] MEDS: APIXABAN 2.5 MG TAB PO SCH (08:55)
[2018-03-11] MEDS: FAMOTIDINE 20 MG TAB PO SCH (08:55)
[2018-03-11] MEDS: DOCUSATE SODIUM 100 MG CAP PO SCH (08:55)
--- NOTE | 2018-03-11 10:14 | SOAPPROG ---
SOAP Progress Note Assessment/Plan: Assessment: 37 y/o F with DVT in right subclavian, now s/p 1st rib resection 03/05 s/p stat team called for increasing chest pain and dropping O2 sats 03/06 S: Continuing to improve. Started Eliquis last night. Some anxiety with starting eliquis and bleeding. Pain improving. O: Alert Afebrile VSS. Hct stable RRR No increased WOB, chest sounds equal bilaterally, chest tube canister with 125ml out in last [address] leak[address] to suction. Plan: Seen with Dr. Tinoco. Chest xray this am shows improving hemothorax and stable pneumo. Will be conservative given her unusual postoperative course. Chest tube to water seal. Repeat chest xray tomorrow and possible removal of chest tube. 03/09/18 10:57 03/10/18 09:04 Continuing to improve. Chest tube to water seal with no air leak. Chest xray from this am still pending. Pending xray, possibly pull chest tube today. Pain well controlled. Eager to be discharged. 03/11/18 10:12 Pt in slightly more pain today, possibly due to increased activity yesterday. Also likely related to chest tube irritation. Chest tube to water seal with no air leak. Less than 100cc out in last 24 hours. Chest xray this am shows continued improvement in left pneumothorax. Plan for chest tube removal today and discharge home pending repeat chest xray. Objective: Vital Signs Temp Pulse Resp BP Pulse Ox 36.7 C 60 12 115/73 93 03/11/18 08:00 03/11/18 08:00 03/11/18 08:00 03/11/18 08:00 03/11/18 08:00 Laboratory Results 03/09/18 04:49 03/06/18 07:10 03/10/18 03/11/18 03/12/18 05:59 05:59 05:59 Intake Total 1100 Output Total 40 2 Balance -40 1098 ICD10 Worksheet Patient Problems: Problems Problem Status Onset DVT (deep venous thrombosis) Acute Thoracic outlet syndrome Acute
== END 2018-03-11 16:42 | disposition home or self-care (01) | DRG 29 ==
LOC: F3N 06:14 → OBSVTOIN 06:14 → F3E 12:11 → F2N 03-06 17:52 → F3E 03-09 13:30
PROVIDERS: ADMIT Surgery; ATTEND Surgery
PROC: 0PT10ZZ Resection of 1 to 2 Ribs, Open Approach (ICD-10-PCS; principal; 2018-03-05 08:00)
PROC: 0W993ZZ Drainage of Right Pleural Cavity, Percutaneous Approach (ICD-10-PCS; 2018-03-07)
DX: G54.0 Brachial plexus disorders (principal); I82.B11 Acute embolism and thrombosis of right subclavian vein; J95.811 Postprocedural pneumothorax; Z79.01 Long term (current) use of anticoagulants
CPT/HCPCS: G0378; J0690; J1100; J1170; J1885; J2060; J2250; J2405; J2704; J3010

== ENCOUNTER → 2018-03-14 | Outpatient (CLI) | payer OTHER | LOC: FIMAGING 08:48 | PROVIDERS: ATTEND Physician Assistant | DX: J90 Pleural effusion, not elsewhere classified (principal); G54.0 Brachial plexus disorders ==

== ENCOUNTER 2018-03-19 07:24 | Day surgery (SDC) | payer OTHER ==
[2018-03-19] MEDS ORDERED: fentaNYL 100 MCG/2 ML INJ IVP PRN (07:46)
[2018-03-19] MEDS ORDERED: MIDAZOLAM 2 MG/2 ML VIAL IVP PRN (07:46)
[2018-03-19] MEDS ORDERED: MEPERIDINE 25 MG/ML SYR IVP PRN (07:46)
[2018-03-19] MEDS ORDERED: NALOXONE HCL 0.4 MG/ML INJ IVP PRN (07:46)
[2018-03-19] MEDS ORDERED: ONDANSETRON 4 MG/2 ML VIAL IVP ONE (07:46)
[2018-03-19] MEDS ORDERED: FLUMAZENIL 0.5 MG/5 ML MDV IVP PRN (07:46)
[2018-03-19] MEDS ORDERED: NS 1,000 ML IV SCH (08:00)
--- NOTE | 2018-03-19 08:56 | PDPROPOC ---
Sedation Plan of Care Sedation Plan of Care: mental status noted, patient can tolerate sedation ASA Classification: ASA 2 Planned drugs: fentanyl, midazolam Mallampati Score: Class 1 Mallampati Reference Image:
--- NOTE | 2018-03-19 08:57 | PDGENHP ---
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
[2018-03-19] MEDS ORDERED: IOPAMIDOL (ISOVUE-300) 100 ML BTL ONE ×2 (09:43→10:50)
[2018-03-19] MEDS ORDERED: LIDOCAINE 1% 300 MG/30 ML SDV ONE (09:43)
[2018-03-19] MEDS ORDERED: MIDAZOLAM 2 MG/2 ML VIAL ONE (09:48)
[2018-03-19] MEDS ORDERED: fentaNYL 100 MCG/2 ML INJ ONE (09:48)
--- NOTE | 2018-03-19 10:50 | PDRADPN ---
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 Post-op Diagnosis: same Indication: Chronic total occlusion of subclavian vein Procedure: Endovascular subclavian vein recannalization Finding(s): Rougly 2cm segment of subclavian vein was chronically occluded with bridging collateral drainage. Very challenging, but successful traversal of [place] subclavian. After 6mm venoplasty there was rapid in line flow across subclavian. Decreased collateral filling. Inf/Abcess present in the surg proc area at time of surgery?: No EBL: Minimal Complications: none
[2018-03-19 12:21] VITALS: BP 106/79
== END 2018-03-19 11:48 | disposition home or self-care (01) ==
LOC: FIMAGING 07:24
PROVIDERS: ATTEND Surgery
PROC: 05753ZZ Dilation of Right Subclavian Vein, Percutaneous Approach (ICD-10-PCS; principal; 2018-03-19 10:40)
DX: I82.B11 Acute embolism and thrombosis of right subclavian vein (principal)
CPT/HCPCS: 36907; 75820; 99153; C1769; C1894; C1725; J1644; J2250; J3010; Q9967

== ENCOUNTER 2018-04-09 07:07 | Day surgery (SDC) | payer OTHER ==
[2018-04-09] MEDS ORDERED: NALOXONE HCL 0.4 MG/ML INJ IVP PRN (07:27)
[2018-04-09] MEDS ORDERED: MEPERIDINE 25 MG/ML SYR IVP PRN (07:27)
[2018-04-09] MEDS ORDERED: MIDAZOLAM 2 MG/2 ML VIAL IVP PRN (07:27)
[2018-04-09] MEDS ORDERED: FLUMAZENIL 0.5 MG/5 ML MDV IVP PRN (07:27)
[2018-04-09] MEDS ORDERED: fentaNYL 100 MCG/2 ML INJ IVP PRN (07:27)
[2018-04-09] MEDS ORDERED: NS 1,000 ML IV SCH (07:30)
[2018-04-09] MEDS ORDERED: FLUMAZENIL 0.5 MG/5 ML MDV IVP ONE (07:31)
[2018-04-09] MEDS ORDERED: MIDAZOLAM 2 MG/2 ML VIAL ONE (07:31)
[2018-04-09] MEDS ORDERED: fentaNYL 100 MCG/2 ML INJ ONE (07:31)
[2018-04-09] MEDS ORDERED: NALOXONE HCL 0.4 MG/ML INJ ONE (07:31)
[2018-04-09] MEDS ORDERED: LIDOCAINE 1% 300 MG/30 ML SDV ONE (07:49)
[2018-04-09] MEDS ORDERED: IOPAMIDOL (ISOVUE-300) 100 ML BTL ONE ×2 (07:49→10:32)
[2018-04-09 07:59] LABS: PROTIME(PATIENT) 13.4 SEC (12.0-15.0)
--- NOTE | 2018-04-09 08:47 | PDGENHP ---
History & Physical Chief Complaint: f/u venogram schedule, asymptomatic History of Present Illness: right subclavian venous occlusion s/p recannnalization. schedule f/u to assess patency of vein. Relevant Physical Exam: no UE edema. Cardiorespiratory Assessment: rrr, nl wob
--- NOTE | 2018-04-09 08:47 | PDPROPOC ---
Sedation Plan of Care ASA Classification: ASA 2 Planned drugs: fentanyl, midazolam Mallampati Score: Class 2 Mallampati Reference Image:
[2018-04-09] MEDS ORDERED: ACETAMINOPHEN 325 MG TAB PO PRN (10:51)
[2018-04-09] MEDS ORDERED: ONDANSETRON 4 MG/2 ML VIAL IVP PRN (10:51)
--- NOTE | 2018-04-09 10:53 | PDRADPN ---
Radiology Procedure Note Date of Procedure: 04/09/18 Radiologist: Stuart Dunham Anesthesia: IV Sedation Pre-op Diagnosis: right subclavian occlusion Post-op Diagnosis: same Indication: maintain vein patency Procedure: subclavian venoplasty Finding(s): recurrent occlusion, able to recannalize and balloon to 6mm. Inf/Abcess present in the surg proc area at time of surgery?: No EBL: Minimal Complications: none
[2018-04-09 12:31] VITALS: BP 110/74
== END 2018-04-09 12:32 | disposition home or self-care (01) ==
LOC: FIMAGING 07:07
PROVIDERS: ATTEND Radiology Diagnostic Radiology
PROC: 05L Upper Veins, Occlusion (ICD-10-PCS; principal; 2018-04-09 10:53)
PROC: 3E033KZ Introduction of Other Diagnostic Substance into Peripheral Vein, Percutaneous Approach (ICD-10-PCS; principal; 2018-04-09 10:53)
DX: I82.B11 Acute embolism and thrombosis of right subclavian vein (principal)
CPT/HCPCS: 37241; 75820; 99152; 99153; C1769; C1894; C1725; J1644; J2250; J2310; J3010; Q9967